=== PATIENT | female | born 1950 | race Caucasian/White ===

== ENCOUNTER → 2018-06-16 | Day surgery (SDC) | payer OTHER ==
[2018-06-16] VITALS (11 sets, daily range): BP systolic 101–120; BP diastolic 48–61
[~2018-06-16] VITALS: Ht 175.3 cm; Wt 68.0 kg
[~2018-06-16] MED LIST: Bupivacaine 0.5% Inj 30 ml vial INJ ONE; D5 1/2NS 1,000 ML IV SCH; Duramorph PF 10mg/10ml amp EPIDUR ONE; EPINEPHrine 1mg/1ml Amp ONE; HYDROmorphone 1mg/ml Carpuject SUBQ PRN; Kenalog-40 1ml Vial ONE; Ketorolac 30mg Inj ONE; LR 1000ml ONE; Lidocaine 1% 10mg/ml/Epi 0.005mg/ml 30ml vial INJ ONE; Lidocaine 1% MPF 10mg/ml 5ml ONE; Metoclopramide 10mg/2ml Inj ONE; Morphine Sulfate PF 10 ML ONE; NS Irrig 1000ml ONE; NS Irrig 4000ml IRRIG ONE; Norco 5mg/325mg tab ORAL PRN; Propofol 200mg/20ml IV ONE; Tylenol #3 tab (300mg/30mg) ORAL PRN; ceFAZolin 1gm IVPB IVPB ONE; celeBREX 200mg Cap **SURGERY PATIENTS ONLY ORAL ONE; fentaNYL 100 mcg/2 mL IV ONE; fentaNYL 100 mcg/2 mL IV PRN; oxyCONTIN 20mg tab ORAL ONE
--- NOTE | 2018-06-16 07:51 | Pre-Procedure Note/Attestation ---
Pre-Procedure Note/Attestation Complete Prior to Procedure Planned Procedure: left Procedure Narrative: knee arthroascopy, possible menisectomy, possible chondroplasty, possible menisectomy Indications for Procedure Pre-Operative Diagnosis: left knee internal derangement Attestation I attest that I discussed the nature of the procedure; its benefits; risks and complications; and alternatives (and the risks and benefits of such alternatives ), prior to the procedure, with the patient (or the patient's legal representative personal service). I attest that, if there was a reasonable possibility of needing a blood transfusion, the patient (or the patient's legal representative personal service) was given the [facility] standardized written summary, pursuant to the [place] Blood Safety Act ([place] Health and Safety Code # 1645, as amended). I attest that I re-evaluated the patient just prior to the surgery and that there has been no change in the patient's H&P, except as documented below: Dave Mehta MD Jun 16, 2018 07:51
--- NOTE | 2018-06-16 07:51 | Operative Note - PDOC ---
Operative Note Operative Note Pre-op Diagnosis: left knee internal derangement Procedure: see op report Post-op Diagnosis: same as pre-op plus Operative Findings: consistent w/pre-op dx studies Anesthesia: MAC Specimen: none Complications: none Condition: stable Estimated Blood Loss: none Implant(s) used?: No Dave Mehta MD Jun 16, 2018 07:51
[2018-06-16] MEDS: Bupivacaine w/Epi 0.25% 30ml Vial INJ ONE ×2 (09:07→09:08)
--- NOTE | 2018-06-16 09:31 | Anethesia Preoperative Eval ---
Anesthesia Pre-op PMH/ROS General Date of Evaluation: Jun 16, 2018 Time of Evaluation: 09:40 Anesthesiologist: tahira ASA Score: ASA 1 Mallampati Score Class I : Soft palate, uvula, fauces, pillars visible Class II: Soft palate, uvula, fauces visible Class III: Soft palate, base of uvula visible Class IV: Only hard plate visible Mallampati Classification: Class II Surgeon: giles Diagnosis: knee pain Surgical Procedure: left knee arthroscopy Anesthesia History: none Family History: no anesthesia problems Allergies: Coded Allergies: No Known Allergies (Unverified , 06/15/18) Medications: see eMAR Patient NPO?: Yes NPO Date: Jun 15, 2018 NPO Time: 23:59 Past Medical History Cardiovascular: Denies: HTN, CAD, CA, valve dz, arrhythmia, other Pulmonary: Denies: asthma, COPD, MAZIN, other Gastrointestinal/Genitourinary: Denies: GERD, CRI, ESRD, other Neurologic/Psychiatric: Denies: dementia, CVA, depression/anxiety, TIA, other Endocrine: Denies: DM, hypothyroidism, steroids, other HEENT: Denies: cataract (L), cataract (R), glaucoma, [place] (L), [place] (R), other Hematology/Immune: Denies: anemia, DVT, bleeding disorder, other Musculoskeletal/Integumentary: Denies: OA, RA, DJD, DDD, edema, other PSxH Narrative: breast augmentation Anesthesia Pre-op Phys. Exam Physician Exam Last Vital Signs Date Time Temp Pulse Resp B/P (MAP) Pulse Ox O2 Delivery O2 Flow Rate FiO2 06/16/18 08:33 Room Air 06/16/18 08:22 97.8 72 18 117/55 98 Constitutional: NAD Neurologic: CN 2-12 intact Cardiovascular: RRR Respiratory: CTA Airway Exam Mallampati Classification 2 Mallampati Score: Class II MO: full ROM: full Dentures: no upper, no lower Anesthesia Pre-op A/P Studies Pre-op Studies: EKG - sr Risk Assessment & Plan Plan: general Pre-Antibiotics Drug: ancef Given Within 1 Hr of Incision: Yes Time Given: 09:40 Shayy Chowdhury CRNA Jun 16, 2018 09:31
--- NOTE | 2018-06-16 13:28 | 48 Hour Post Anesthesia Eval ---
Post Anesthesia Evaluation Procedure: left knee scope Date of Evaluation: Jun 16, 2018 Time of Evaluation: 13:27 Blood Pressure Systolic: 109 0: 49 Pulse Rate: 70 Respiratory Rate: 14 Temperature (Fahrenheit): 97.5 O2 Sat by Pulse Oximetry: 98 Airway: patent Nausea: No Vomiting: No Hydration Status: adequate Cardiopulmonary Status: stable Mental Status/LOC: patient returned to baseline Follow-up Care/Observations: na Post-Anesthesia Complications: none Follow-up care needed: N/A Shayy Chowdhury CRNA Jun 16, 2018 13:28
--- NOTE | 2018-06-16 13:32 | Immediate Post-Op Evaluation ---
Immediate Post-Op Evalulation Immediate Post-Op Evalulation Procedure: left knee scope Date of Evaluation: Jun 16, 2018 Time of Evaluation: 09:30 IV Fluids: 600 Estimated Blood Loss: 1 Blood Pressure Systolic: 120 Blood Pressure Diastolic: 60 Pulse Rate: 77 Respiratory Rate: 14 Temperature (Fahrenheit): 97.5 Pain Score (1-10): 0 Nausea: No Vomiting: No Complications none Patient Status: awake, reacts, patent Hydration Status: adequate Drug: ancef Given Within 1 Hr of Incision: Yes Time Given: 08:45 Shayy Chowdhury CRNA Jun 16, 2018 13:32
--- NOTE | 2018-06-19 17:45 | Operative Note - Dictated ---
DATE OF OPERATION: 06/16/2018 PREOPERATIVE DIAGNOSES: 1. Left knee patellofemoral chondral damage. 2. Possible medial and lateral meniscal tear. POSTOPERATIVE DIAGNOSES: 1. Left knee lateral meniscus tear. 2. Grade 3 to grade 4 chondral damage, patellofemoral compartment. 3. Hypertrophic synovial tissue/fat pad, patellofemoral and medial compartment. PROCEDURES: 1. Left knee diagnostic arthroscopy and synovectomy, medial and patellofemoral compartment. 2. Gentle chondroplasty, patellofemoral compartment. 3. Partial lateral meniscectomy, posterior horn. SURGEON: Dave Mehta M.D. ANESTHESIA: MAC with local. INDICATION FOR PROCEDURE: The patient is a pleasant female, who has had progressive knee pain. She failed conservative treatment. She had an MRI, which showed some chondral damage and a concern that she may either have a 01:16. Given that she had continued pain, it was felt that either she had 01:20 chondral flap or maybe some hypertrophic fat pad could be causing her symptomatology. She also had some changes and signal change along with the meniscus and therefore she 01:30 for possible meniscectomy based on the intraoperative nature of the meniscus. Risks, limitations, expectations, and complications related to the procedure were discussed in detail. All questions addressed. DESCRIPTION OF PROCEDURE: After informed consent was obtained, the patient was brought to the operating room and was placed 01:42 general anesthesia. Tourniquet was applied to the left proximal thigh. Left leg was prepped and draped in a sterile manner. Time-out was performed. A 0.25% Marcaine was injected to the right knee and portal sites were injected with lidocaine. Inferolateral stab incision was then made. Trocar was introduced into the knee joint. There was hypertrophic fat pad and synovial tissue. There was grade 3 chondral damage of patellofemoral compartment with some chondral flaps. The medial compartment was entered. There was hypertrophic fat pad and synovial tissue making visualization somewhat difficult. A medial working portal was established and synovectomy and excision of the fat pad on the anterior portion of medial compartment extending into the intercondylar notch was performed. Medial compartment was entered. The posterior horn of medial meniscus was aggressively probed given that had evidence of some signal changes. The ACL was probed and noted to be intact. Lateral compartment was entered. There was some tearing of the posterior horn lateral meniscus. Therefore, partial meniscectomy was performed. Once that was completed, camera was repositioned in the patellofemoral compartment and the excision of the fat pad and synovectomy was completed. Once that was done, gentle chondroplasty of the patellofemoral compartment was performed. Once that was completed, the instruments were removed. Portal sites were closed using 3-0 Monocryl sutures. Steri-Strips and sterile dressing was applied. The patient was awoken and taken to recovery room with stable vital signs. ESTIMATED BLOOD LOSS: None. COMPLICATIONS: None. SPECIMENS: None. IMPLANTS: None. Dave Mehta M.D. DR: FISH JOB#: [id number] CC:
== END | disposition home or self-care (01) ==
LOC: SUR 07:06
DX: S83.282A Other tear of lateral meniscus, current injury, left knee, initial encounter (principal); M67.262 Synovial hypertrophy, not elsewhere classified, left lower leg; X58.XXXA Exposure to other specified factors, initial encounter; Y93.9 Activity, unspecified; Y92.9 Unspecified place or not applicable
CPT/HCPCS: 29876; 29880; J1885; J2274; J2405; J2704; J2765; J3010; J3301; J3490; 94003; 94150

== ENCOUNTER 2018-07-28 06:43 | Day surgery (SDC) | payer OTHER ==
[~2018-07-28] VITALS: Ht 172.7 cm; Wt 67.1 kg
[2018-07-28] VITALS (10 sets, daily range): BP systolic 99–125; BP diastolic 56–67
[~2018-07-28 06:43] MED LIST changes: -Bupivacaine 0.5% Inj 30 ml vial INJ ONE; +Clindamycin 600mg/D5W 50ml IV ONE; -D5 1/2NS 1,000 ML IV SCH; -Duramorph PF 10mg/10ml amp EPIDUR ONE; -EPINEPHrine 1mg/1ml Amp ONE; -HYDROmorphone 1mg/ml Carpuject SUBQ PRN; -Kenalog-40 1ml Vial ONE; -Ketorolac 30mg Inj ONE; -LR 1000ml ONE; -Lidocaine 1% 10mg/ml/Epi 0.005mg/ml 30ml vial INJ ONE; -Lidocaine 1% MPF 10mg/ml 5ml ONE; -Metoclopramide 10mg/2ml Inj ONE; -Morphine Sulfate PF 10 ML ONE; +NKM; -NS Irrig 1000ml ONE; -NS Irrig 4000ml IRRIG ONE; -Norco 5mg/325mg tab ORAL PRN; -Propofol 200mg/20ml IV ONE; -Tylenol #3 tab (300mg/30mg) ORAL PRN; -ceFAZolin 1gm IVPB IVPB ONE; -fentaNYL 100 mcg/2 mL IV ONE; -fentaNYL 100 mcg/2 mL IV PRN
--- NOTE | 2018-07-28 07:20 | Operative Note - PDOC ---
Operative Note Operative Note Pre-op Diagnosis: right knee internal derangement Procedure: see op report Post-op Diagnosis: same as pre-op plus Anesthesia: MAC Specimen: none Complications: none Estimated Blood Loss: none Dave Mehta MD Jul 28, 2018 07:20
--- NOTE | 2018-07-28 07:20 | Pre-Procedure Note/Attestation ---
Pre-Procedure Note/Attestation Complete Prior to Procedure Planned Procedure: right Procedure Narrative: knee arthroscopy, possible menisectomy Indications for Procedure Pre-Operative Diagnosis: right knee internal derangement Attestation I attest that I discussed the nature of the procedure; its benefits; risks and complications; and alternatives (and the risks and benefits of such alternatives ), prior to the procedure, with the patient (or the patient's legal hardware supplies sales representative). I attest that, if there was a reasonable possibility of needing a blood transfusion, the patient (or the patient's legal hardware supplies sales representative) was given the [facility] standardized written summary, pursuant to the [place] Blood Safety Act ([place] Health and Safety Code # 1645, as amended). I attest that I re-evaluated the patient just prior to the surgery and that there has been no change in the patient's H&P, except as documented below: Dave Mehta MD Jul 28, 2018 07:20
--- NOTE | 2018-07-28 08:00 | NUR ---
Patient refused Oxycontin preop.
[2018-07-28] MEDS ORDERED: celeBREX 200mg Cap **SURGERY PATIENTS ONLY ORAL ONE (08:19)
--- NOTE | 2018-07-28 09:31 | NUR ---
Dr. Mehta notified re: patient refused oxycontin preop.
[2018-07-28] MEDS ORDERED: LR 1000ml ONE (10:00)
[2018-07-28] MEDS ORDERED: NS Irrig 4000ml IRRIG ONE (10:00)
[2018-07-28] MEDS ORDERED: Clindamycin 600mg 50 ML IV ONE (10:05)
[2018-07-28] MEDS ORDERED: Ketorolac 30mg Inj ONE (10:06)
[2018-07-28] MEDS ORDERED: Lidocaine 1% 10mg/ml/Epi 0.005mg/ml 30ml vial INJ ONE (10:06)
[2018-07-28] MEDS ORDERED: Bupivacaine w/Epi 0.5% 30ml Vial INJ ONE (10:06)
[2018-07-28] MEDS ORDERED: Morphine Sulfate PF 10 ML ONE (10:06)
[2018-07-28] MEDS ORDERED: Kenalog-40 1ml Vial ONE (10:06)
[2018-07-28] MEDS ORDERED: fentaNYL 100 mcg/2 mL IV ONE (10:14)
[2018-07-28] MEDS ORDERED: Metoclopramide 10mg/2ml Inj ONE (10:22)
[2018-07-28] MEDS ORDERED: Lidocaine 1% MPF 10mg/ml 5ml ONE (10:22)
[2018-07-28] MEDS ORDERED: Dexamethasone 4mg/ml vial ONE (10:22)
[2018-07-28] MEDS ORDERED: Propofol 200mg/20ml IV ONE (10:22)
[2018-07-28] MEDS ORDERED: Metoclopramide 10mg/2ml Inj IVP PRN (10:45)
[2018-07-28] MEDS ORDERED: fentaNYL 100 mcg/2 mL IV PRN (10:45)
--- NOTE | 2018-07-28 10:52 | Immediate Post-Op Evaluation ---
Immediate Post-Op Evalulation Immediate Post-Op Evalulation Procedure: right knee scope Date of Evaluation: Jul 28, 2018 Time of Evaluation: 10:38 IV Fluids: 500 Blood Pressure Systolic: 116 Blood Pressure Diastolic: 80 Pulse Rate: 70 Respiratory Rate: 14 O2 Sat by Pulse Oximetry: 100 Temperature (Fahrenheit): 87.8 Nausea: No Vomiting: No Complications none Patient Status: awake, reacts, patent Hydration Status: adequate Drug: celocin Given Within 1 Hr of Incision: Yes Time Given: 10:05 Shayy Chowdhury CRNA Jul 28, 2018 10:52
--- NOTE | 2018-07-28 10:56 | Anethesia Preoperative Eval ---
Anesthesia Pre-op PMH/ROS General Date of Evaluation: Jul 28, 2018 Time of Evaluation: 10:00 Anesthesiologist: tahira ASA Score: ASA 1 Mallampati Score Class I : Soft palate, uvula, fauces, pillars visible Class II: Soft palate, uvula, fauces visible Class III: Soft palate, base of uvula visible Class IV: Only hard plate visible Mallampati Classification: Class II Surgeon: giles Diagnosis: knee pain Surgical Procedure: right knee scope Anesthesia History: PONV Family History: no anesthesia problems Allergies: Coded Allergies: PENICILLINS (Verified Allergy, Unknown, 07/27/18) PT CANNOT REMEMBER REACTION Patient NPO?: Yes NPO Date: Jul 27, 2018 NPO Time: 2100 Past Medical History Cardiovascular: Denies: HTN, CAD, [place], valve dz, arrhythmia, other Pulmonary: Denies: asthma, COPD, MAZIN, other Gastrointestinal/Genitourinary: Denies: GERD, CRI, ESRD, other Neurologic/Psychiatric: Denies: dementia, CVA, depression/anxiety, TIA, other Endocrine: Denies: DM, hypothyroidism, steroids, other HEENT: Denies: cataract (L), cataract (R), glaucoma, RAMONA (L), RAMONA (R), other Hematology/Immune: Denies: anemia, DVT, bleeding disorder, other Musculoskeletal/Integumentary: Denies: OA, RA, DJD, DDD, edema, other PSxH Narrative: knee surgery - ponv Anesthesia Pre-op Phys. Exam Physician Exam Last Vital Signs Date Time Temp Pulse Resp B/P (MAP) Pulse Ox O2 Delivery O2 Flow Rate FiO2 07/28/18 10:40 79 17 102/59 100 Simple Mask 6 07/28/18 10:32 97.5 Constitutional: NAD Neurologic: CN 2-12 intact Cardiovascular: RRR Respiratory: CTA Gastrointestinal: S/NT/ND Airway Exam Mallampati Classification 2 Mallampati Score: Class II MO: full ROM: full Dentures: no upper, no lower Anesthesia Pre-op A/P Studies Pre-op Studies: EKG - sr Risk Assessment & Plan Plan: general TIVA Status Change Before Surgery: No Pre-Antibiotics Drug: clecocin Given Within 1 Hr of Incision: Yes Time Given: 10:05 Shayy Chowdhury CRNA Jul 28, 2018 10:56
--- NOTE | 2018-07-28 11:41 | 48 Hour Post Anesthesia Eval ---
Post Anesthesia Evaluation Procedure: right knee scope Date of Evaluation: Jul 28, 2018 Time of Evaluation: 11:41 Blood Pressure Systolic: 111 0: 70 Pulse Rate: 50 Respiratory Rate: 14 Temperature (Fahrenheit): 97.5 O2 Sat by Pulse Oximetry: 98 Airway: patent Nausea: No Vomiting: No Hydration Status: adequate Cardiopulmonary Status: stable Mental Status/LOC: patient returned to baseline Follow-up Care/Observations: na Post-Anesthesia Complications: none Shayy Chowdhury CRNA Jul 28, 2018 11:41
--- NOTE | 2018-07-28 17:45 | Operative Note - Dictated ---
DATE OF OPERATION: 07/28/2018 POSTOPERATIVE DIAGNOSES: 1. Right knee chondral damage. 2. Hypertrophic fat pad syndrome/synovitis. POSTOPERATIVE DIAGNOSES: 1. Right knee chondral damage. 2. Hypertrophic fat pad syndrome/synovitis. 3. Medial plica. PROCEDURES: 1. Right knee diagnostic arthroscopy and synovectomy, medial and lateral patellofemoral compartment. 2. A chondroplasty of medial patellofemoral compartment. SURGEON: Dave Mehta M.D. ANESTHESIA: MAC with local. INDICATION FOR PROCEDURE: The patient is a pleasant female who has had a significant injury to right knee. She had MRI, which showed bone bruises. She had knee pain despite conservative treatment. She elected to undergo a diagnostic arthroscopy with possible synovectomy, chondroplasty and meniscectomy. Risks, limitations, expectations, and complications of the procedure were discussed in detail. All questions were addressed. DESCRIPTION OF PROCEDURE: After informed consent was obtained, the patient was brought to the operating room. The patient was placed under general anesthesia. The right leg was prepped and draped in a sterile manner. Time-out was performed. Inferolateral stab incision was then made. Trocar was introduced into the knee joint with some resistance. The patellofemoral compartment was evaluated. There was hypertrophic fat pad in the patellofemoral compartment, making visualization somewhat difficult. There was medial plica with flexion and extension that was rubbing along the medial femoral condyle of medial compartment. Medial gutter was entered free of meniscal chondral damage. Medial compartment was entered. There was hypertrophic synovial tissue in the fat pad anteriorly, medial working portal was established. Synovectomy of the anterior compartment was performed to better visualize the medial compartment. Medial compartment was then entered. The meniscus was probed and noted to be intact. The intercondylar notch was then entered. The hypertrophic ligamentum mucosa and the tissue was debrided to visualize the ACL, which was probed and noted to be intact. At this point, the lateral compartment was entered. Attention was turned towards release of the chondral surface of the lateral compartment. There was no obvious chondral flaps and meniscus appeared to be intact. At this point, the camera was repositioned in the patellofemoral compartment. Synovectomy and excision fat pad was completed. Once that was done, better visualization of patellofemoral compartment was available. At this point, the instruments were removed. Portal sites were closed with Monocryl suture. Steri-Strips and sterile dressing was applied. The patient was awoken and taken to recovery with stable vital signs. ESTIMATED BLOOD LOSS: Minimum. COMPLICATIONS: None. IMPLANTS: None. Dave Mehta M.D. DR: JAE JOB#: [id number] CC:
[2018-07-28] MEDS ORDERED: D5 1/2NS 1,000 ML IV SCH (19:01)
[2018-07-28] MEDS ORDERED: Tylenol #3 tab (300mg/30mg) ORAL PRN (19:01)
[2018-07-28] MEDS ORDERED: Norco 5mg/325mg tab ORAL PRN (19:01)
[2018-07-28] MEDS ORDERED: HYDROmorphone 1mg/ml Carpuject SUBQ PRN (19:01)
== END 2018-07-28 12:05 | disposition home or self-care (01) ==
LOC: SUR 06:43
DX: M94.9 Disorder of cartilage, unspecified (principal); M79.4 Hypertrophy of (infrapatellar) fat pad; M65.9 Synovitis and tenosynovitis, unspecified; M67.51 Plica syndrome, right knee; E78.5 Hyperlipidemia, unspecified; Z88.0 Allergy status to penicillin
CPT/HCPCS: 29876; J1100; J1885; J2274; J2405; J2704; J2765; J3010; J3301; 94003; 94150; S0077